=== PATIENT | male | born 1930 | race Caucasian/White ===

== ENCOUNTER 2017-01-13 12:34 | Inpatient (IN) | payer OTHER ==
[~2017-01-13] VITALS: Ht 180.3 cm; Wt 62.6 kg
[~2017-01-13 12:34] MED LIST: ASPIR 8181 MG PO; CLARITIN10 MG PO; ENALAPRIL MALEA10 MG PO; LACTULOSE10 GM/152 PO; MIRALAX17 GM/Dose PO; PRE50 PO
[2017-01-13 14:10] LABS: BASOPHIL % 0.3 % (0-2); PLATELET COUNT 216 x10^3mcL (130-400)
[2017-01-13 14:19] LABS: CALCIUM 8.4 mg/dL (8.5-10.1); CHLORIDE SERUM 105 mmol/L (98-107); CREATININE SERUM 1.5 mg/dL (0.7-1.3); GLUCOSE SERUM 65 mg/dL (74-106); POTASSIUM SERUM 3.9 mmol/L (3.5-5.1); SODIUM SERUM 138 mmol/L (136-145)
[2017-01-13 14:23] LABS: ALKALINE PHOSPHATASE 120 U/L (46-116); ALT/SGPT 44 U/L (16-63); AST/SGOT 49 U/L (15-37); BILIRUBIN TOTAL 0.27 mg/dL (0.20-1.00); TOTAL PROTEIN, SERUM 7.5 g/dL (6.4-8.2)
[2017-01-13 14:26] LABS: ALBUMIN 3.1 g/dL (3.4-5.0); CHOLESTEROL 133 mg/dL (<200); HDL CHOLESTEROL 63 mg/dL (40-60)
[2017-01-13] MEDS ORDERED: PRE50 PO (14:59)
[2017-01-13] MEDS ORDERED: ENALAPRIL MALEA10 MG PO (14:59)
[2017-01-13] MEDS ORDERED: ASPIR 8181 MG PO (14:59)
[2017-01-13] MEDS ORDERED: MOM PO (14:59)
[2017-01-13] MEDS ORDERED: DULCOLAX10 M1 RC (15:00)
[2017-01-13 16:04] LABS: UA SPECIFIC GRAVITY 1.025 (1.005-1.035); microscopic required? YES; urine erythrocyte 1+ (NEGATIVE)
[2017-01-13 16:20] VITALS: BP 132/71
[2017-01-13 16:40] VITALS: BP 132/71
[2017-01-13 16:48] LABS: CHOLESTEROL/HDL RATIO 2.2
[2017-01-13 16:54] LABS: FREE T4 1.22 ng/dL (0.76-1.46); FREE THYROXINE INDEX 2.7 ug/dL (1.4-4.5); T3 TOTAL 0.58 ng/mL; T4(THYROXINE) 7.7 ug/dL (4.7-13.3)
[2017-01-13 20:00] VITALS: BP 135/61
[2017-01-14 06:29] LABS: BASOPHIL % 0.1 % (0-2); PLATELET COUNT 170 x10^3mcL (130-400)
[2017-01-14 06:44] LABS: RED CELL DISTRIBUTION WIDTH 14.8 % (11.5-14.5)
[2017-01-14 06:58] LABS: CALCIUM 7.8 mg/dL (8.5-10.1); CARBON DIOXIDE 20.1 mmol/L (21-32); CHLORIDE SERUM 106 mmol/L (98-107); CREATININE SERUM 1.7 mg/dL (0.7-1.3); GLUCOSE SERUM 235 mg/dL (74-106); MAGNESIUM 1.9 mg/dL (1.8-2.4); PHOSPHOROUS 3.7 mg/dL (2.5-4.9); SODIUM SERUM 137 mmol/L (136-145)
[2017-01-14 08:46] VITALS: BP 136/70
[2017-01-14 13:20] LABS: RED BLOOD CELLS 2.79 M/mm3 (4.52-5.90)
[2017-01-14 13:21] VITALS: BP 117/56
[2017-01-14 13:48] LABS: IRON 8 ug/dL (65-170); TOTAL IRON BINDING CAPACITY 153 ug/dL (250-450)
[2017-01-14 17:38] VITALS: BP 126/70
[2017-01-14 21:47] VITALS: BP 119/51
[2017-01-15 06:04] VITALS: BP 141/71
[2017-01-15 06:28] LABS: CALCIUM 7.8 mg/dL (8.5-10.1); CARBON DIOXIDE 20.5 mmol/L (21-32); CHLORIDE SERUM 109 mmol/L (98-107); CREATININE SERUM 1.7 mg/dL (0.7-1.3); GLUCOSE SERUM 118 mg/dL (74-106); MAGNESIUM 1.9 mg/dL (1.8-2.4); PHOSPHOROUS 3.5 mg/dL (2.5-4.9); POTASSIUM SERUM 4.3 mmol/L (3.5-5.1); SODIUM SERUM 141 mmol/L (136-145)
[2017-01-15 06:32] LABS: BASOPHIL % 1.1 % (0-2); PLATELET COUNT 176 x10^3mcL (130-400); RED CELL DISTRIBUTION WIDTH 14.1 % (11.5-14.5)
[2017-01-15 09:30] VITALS: BP 146/67
[2017-01-15 14:00] VITALS: BP 135/79
[2017-01-15 18:06] VITALS: BP 166/78
[2017-01-15 21:54] VITALS: BP 161/72
[2017-01-16 02:20] VITALS: BP 145/78
[2017-01-16 06:22] LABS: PLATELET COUNT 180 x10^3mcL (130-400)
[2017-01-16 06:34] LABS: CALCIUM 7.8 mg/dL (8.5-10.1); CARBON DIOXIDE 18.4 mmol/L (21-32); CHLORIDE SERUM 105 mmol/L (98-107); CREATININE SERUM 1.5 mg/dL (0.7-1.3); GLUCOSE SERUM 200 mg/dL (74-106); MAGNESIUM 1.8 mg/dL (1.8-2.4); PHOSPHOROUS 3.2 mg/dL (2.5-4.9); POTASSIUM SERUM 4.2 mmol/L (3.5-5.1); SODIUM SERUM 137 mmol/L (136-145)
[2017-01-16 06:57] LABS: BASOPHIL % 0 % (0-2); RED CELL DISTRIBUTION WIDTH 14.8 % (11.5-14.5)
[2017-01-16 07:10] VITALS: BP 116/57
[2017-01-16 09:16] VITALS: BP 94/50
[2017-01-16 14:13] VITALS: BP 119/61
[2017-01-16 17:35] VITALS: BP 131/56
[2017-01-16 20:54] VITALS: BP 109/67
[2017-01-17] VITALS (7 sets, daily range): BP systolic 104–147; BP diastolic 57–73
[2017-01-17 06:37] LABS: BASOPHIL % 0.1 % (0-2); PLATELET COUNT 175 x10^3mcL (130-400)
[2017-01-17 06:45] LABS: CALCIUM 7.7 mg/dL (8.5-10.1); CARBON DIOXIDE 21.7 mmol/L (21-32); CHLORIDE SERUM 108 mmol/L (98-107); CREATININE SERUM 1.6 mg/dL (0.7-1.3); GLUCOSE SERUM 171 mg/dL (74-106); MAGNESIUM 1.8 mg/dL (1.8-2.4); POTASSIUM SERUM 4.2 mmol/L (3.5-5.1); SODIUM SERUM 140 mmol/L (136-145)
[2017-01-18 05:41] VITALS: BP 138/76
[2017-01-18 06:40] LABS: BASOPHIL % 0.1 % (0-2); PLATELET COUNT 206 x10^3mcL (130-400)
[2017-01-18 06:41] LABS: CALCIUM 7.7 mg/dL (8.5-10.1); CARBON DIOXIDE 21.8 mmol/L (21-32); CHLORIDE SERUM 107 mmol/L (98-107); CREATININE SERUM 1.5 mg/dL (0.7-1.3); GLUCOSE SERUM 139 mg/dL (74-106); SODIUM SERUM 141 mmol/L (136-145)
[2017-01-18 06:58] LABS: RED CELL DISTRIBUTION WIDTH 15.1 % (11.5-14.5)
[2017-01-18 09:15] VITALS: BP 142/73
[2017-01-18 12:54] VITALS: BP 149/79
[2017-01-18 16:01] VITALS: BP 134/56
[2017-01-18 21:35] VITALS: BP 143/5; BP 143/56
[2017-01-19] VITALS (7 sets, daily range): BP systolic 102–184; BP diastolic 53–94
[2017-01-19 06:31] LABS: PLATELET COUNT 239 x10^3mcL (130-400)
[2017-01-19 06:44] LABS: CALCIUM 8.1 mg/dL (8.5-10.1); CHLORIDE SERUM 106 mmol/L (98-107); CREATININE SERUM 1.7 mg/dL (0.7-1.3); GLUCOSE SERUM 252 mg/dL (74-106); POTASSIUM SERUM 4.1 mmol/L (3.5-5.1); SODIUM SERUM 141 mmol/L (136-145)
[2017-01-19 06:45] LABS: RED CELL DISTRIBUTION WIDTH 15.1 % (11.5-14.5)
[2017-01-19 08:20] LABS: BAND NEUTROPHIL 2 % (0-10); BASOPHIL 0 % (0-2); MONOCYTE 5 % (0-7); SEGMENTED NEUTROPHILS 89 % (37-75)
[2017-01-19 08:22] LABS: PLATELET MORPHOLOGY PLATELETS NORMAL; burr cell (echinocyte) 1+; ovalocyte/elliptocyte 1+; rbc morphology (normal/abnorm) ABNORMAL (NORMAL)
[2017-01-20 05:51] VITALS: BP 139/70
[2017-01-20 06:23] LABS: BASOPHIL % 0.2 % (0-2); PLATELET COUNT 262 x10^3mcL (130-400)
[2017-01-20 06:45] LABS: CALCIUM 7.8 mg/dL (8.5-10.1); CARBON DIOXIDE 21.5 mmol/L (21-32); CHLORIDE SERUM 107 mmol/L (98-107); CREATININE SERUM 1.7 mg/dL (0.7-1.3); GLUCOSE SERUM 144 mg/dL (74-106); MAGNESIUM 1.8 mg/dL (1.8-2.4); PHOSPHOROUS 3.2 mg/dL (2.5-4.9); POTASSIUM SERUM 3.7 mmol/L (3.5-5.1); SODIUM SERUM 141 mmol/L (136-145)
[2017-01-20 09:41] VITALS: BP 151/56
[2017-01-20] MEDS ORDERED: FER300 PO (10:51)
[2017-01-20] MEDS ORDERED: LIPI10 PO (10:52)
[2017-01-20] MEDS ORDERED: XOP0.63 HHN (10:52)
[2017-01-20] MEDS ORDERED: LOP50 PO (10:52)
[2017-01-20] MEDS ORDERED: MVIL PO (10:53)
[2017-01-20] MEDS ORDERED: VITC PO (10:53)
[2017-01-20] MEDS ORDERED: NOVAPLUS ZOSYN50 M1 IV (10:55)
[2017-01-20] MEDS ORDERED: LAC PO (10:55)
[2017-01-20] MEDS ORDERED: LASIX20 MG PO (12:58)
[2017-01-20] MEDS ORDERED: LASIX40 MG PO (13:00)
[2017-01-20 14:05] VITALS: BP 151/56
[2017-01-20 14:10] VITALS: BP 156/67
[2017-01-20 14:11] VITALS: BP 156/67
[2017-01-20 14:51] VITALS: BP 153/67
== END 2017-01-20 17:10 | DRG 177 ==
LOC: ED 12:34 → DU 14:46 → MU 01-18 16:12 → DU 01-19 05:15
PROVIDERS: Emergency Medicine; Family Medicine; ADMIT Family Medicine
DX: J69.0 Pneumonitis due to inhalation of food and vomit (principal); G93.41 Metabolic encephalopathy; N17.0 Acute kidney failure with tubular necrosis; I50.43 Acute on chronic combined systolic (congestive) and diastolic (congestive) heart failure; J96.00 Acute respiratory failure, unspecified whether with hypoxia or hypercapnia; E44.0 Moderate protein-calorie malnutrition; Z68.1 Body mass index [BMI] 19.9 or less, adult; I42.9 Cardiomyopathy, unspecified; I24.8 Other forms of acute ischemic heart disease; E86.0 Dehydration; G30.9 Alzheimer's disease, unspecified; E11.51 Type 2 diabetes mellitus with diabetic peripheral angiopathy without gangrene; E11.65 Type 2 diabetes mellitus with hyperglycemia; R00.0 Tachycardia, unspecified; D64.9 Anemia, unspecified; R80.8 Other proteinuria; I27.2 Other secondary pulmonary hypertension; F02.80 Dementia in other diseases classified elsewhere, unspecified severity, without behavioral disturbance, psychotic disturbance, mood disturbance, and anxiety; Z66 Do not resuscitate; Z51.5 Encounter for palliative care; Z79.82 Long term (current) use of aspirin; Z95.1 Presence of aortocoronary bypass graft; Z87.891 Personal history of nicotine dependence; Z79.84 Long term (current) use of oral hypoglycemic drugs; I25.10 Atherosclerotic heart disease of native coronary artery without angina pectoris
CPT/HCPCS: 36600; 83880; 84439; 92610-GN; 94150; 97110-GP; 97116-GP; 97530-GP; J0456; J0696; J1644; J1815; J1940; J2543; J3490; J7030; J7050; J7613; J7620; Q0092